=== PATIENT | female | born 1965 | race Caucasian/White ===

== ENCOUNTER 2017-01-02 09:51 | Emergency (ER) | payer MEDICARE, MEDICAID ==
[~2017-01-02 09:51] MED LIST: CITA-30; GABA-497 PO; LISI10TA6 PO; METF-370 PO; OMEP20CA74 PO
[2017-01-02] MEDS ORDERED: SODIUM CHLORIDE 0.9% 1,000 ML IV ONE (09:58)
[2017-01-02] MEDS ORDERED: LORazepam 2MG/ML-1ML VIAL IV ONE (10:00)
[2017-01-02] MEDS ORDERED: ONDANSETRON HCL 4 MG/2 ML VIAL ONE (10:16)
[2017-01-02 10:29] LABS: Basophils # (auto) 0 uL; Basophils % (auto) 0.3 % (0.0-2.0); CONDITION Y; Eosinophils # (auto) 0.2 uL; Eosinophils % (auto) 2.4 % (0.0-7.0); Hematocrit 39.8 % (36.0-46.0); Hemoglobin 13.6 g/dL (12.2-16.2); Lymphocytes # (auto) 2.7 uL; Lymphocytes % (auto) 27.4 % (10.0-50.0); Mean Corpuscular Hemoglobin 30.2 pg (28.0-32.0); Mean Corpuscular Hgb Conc. 34.1 g/dL (32.0-36.0); Mean Corpuscular Volume 88.8 fL (80.0-100.0); Mean Platelet Volume 9.1 fL (7.4-10.4); Monocytes # (auto) 0.5 uL; Monocytes % (auto) 5.2 % (0.0-12.0); Neutrophils # (auto) 6.3 uL; Neutrophils % (auto) 64.7 % (37.0-80.0); Platelet Count (auto) 241 10^3/uL (140-450); Red Cell Distribution Width 13.4 % (11.6-16.0); White Blood Cell 9.7 10^3/uL (4.4-10.8)
[2017-01-02] MEDS ORDERED: ONDANSETRON HCL 4 MG/2 ML VIAL IV ONE (10:30)
[2017-01-02 10:42] LABS: INR 0.95 (0.9-1.15); Partial Thromboplastin Time 25.4 sec (22.64-33.71); Prothrombin Time 10.3 sec (9.37-12.3)
[2017-01-02 10:56] LABS: Albumin 3.2 g/dL (3.4-5.0); Alkaline Phosphatase 105 U/L (45-117); Anion Gap 9 (5-15); Aspartate Aminotransferase 29 U/L (15-37); BUN/Creatinine Ratio 14.6; Bilirubin, Total 0.3 mg/dL (0.2-1.0); Blood Urea Nitrogen 13 mg/dL (7-18); Calcium 8.3 mg/dL (8.5-10.1); Carbon Dioxide 21 mmol/L (21-32); Chloride 106 mmol/L (98-107); GFR African American 86 mL/min; GFR Non-African American 71 mL/min; Glucose 249 mg/dL (74-106); Potassium 3.8 mmol/L (3.5-5.1); Sodium 136 mmol/L (136-145); Total Protein 7.3 g/dL (6.4-8.2)
[2017-01-02 12:27] LABS: Urine Bilirubin Negative (Negative); Urine Blood Negative /uL (Negative); Urine Color Yellow (Yellow); Urine Ketone Negative (Negative); Urine Mucus FEW (None Seen); Urine Nitrite Negative (Negative); Urine RBC 2 /hpf (0 - 4); Urine Squamous Epithelial Cell MOD /hpf (<5); Urine Urobilinogen Normal (Negative); Urine pH 5.5 (5.0-8.0)
[2017-01-02 12:29] LABS: Urine Glucose 4+ mg/dL (Normal)
[2017-01-02 13:14] VITALS: BP 125/76
== END 2017-01-02 13:21 | disposition home or self-care (01) ==
LOC: EDBD 09:51 → ER 09:51
DX: R07.89 Other chest pain (principal); N39.0 Urinary tract infection, site not specified; Z88.1 Allergy status to other antibiotic agents; Z88.6 Allergy status to analgesic agent; E78.5 Hyperlipidemia, unspecified; I10 Essential (primary) hypertension; E11.9 Type 2 diabetes mellitus without complications; Z87.11 Personal history of peptic ulcer disease; Z90.710 Acquired absence of both cervix and uterus; Z98.51 Tubal ligation status
CPT/HCPCS: 36415; 71010; 80053; 81001; 82962; 84484; 85025; 85610; 85730; 93005; 96361; 96374; 96375; 99285; J2060; J2405; J7030

== ENCOUNTER 2018-01-15 09:55 | Inpatient (IN) | payer MEDICARE, MEDICAID ==
[~2018-01-15] VITALS: Ht 162.6 cm; Wt 90.5 kg
[~2018-01-15 09:55] MED LIST changes: -GABA-497 PO; +GABA300C10 PO
[2018-01-15] MEDS ORDERED: NITROGLYCERIN 0.4 MG SL TAB SL ONE (11:00)
[2018-01-15] MEDS ORDERED: ASPirin 81 mg TAB PO ONE (11:00)
[2018-01-15 11:08] LABS: Urine Bacteria FEW /hpf (None Seen); Urine Blood Negative /uL (Negative); Urine Specific Gravity 1.033 (1.001-1.035); Urine WBC 38 /hpf (0 - 5)
[2018-01-15 11:20] LABS: Basophils # (auto) 0.1 uL; Basophils % (auto) 0.7 % (0.0-2.0); Eosinophils # (auto) 0.2 uL; Eosinophils % (auto) 1.7 % (0.0-7.0); Hemoglobin 13.8 g/dL (12.2-16.2); Lymphocytes # (auto) 3.5 uL; Lymphocytes % (auto) 36.2 % (10.0-50.0); Mean Corpuscular Hemoglobin 29.7 pg (28.0-32.0); Mean Corpuscular Hgb Conc. 33.6 g/dL (32.0-36.0); Mean Corpuscular Volume 88.4 fL (80.0-100.0); Monocytes # (auto) 0.7 uL; Monocytes % (auto) 6.8 % (0.0-12.0); Neutrophils # (auto) 5.3 uL; Neutrophils % (auto) 54.6 % (37.0-80.0); Nucleated Red Blood Cells % 0.1 %; Platelet Count (auto) 179 10^3/uL (140-450); Red Blood Cells 4.64 10^6/uL (4.0-5.20); White Blood Cell 9.7 10^3/uL (4.4-10.8)
[2018-01-15 11:39] LABS: Alanine Aminotransferase 92 U/L (13-56); Albumin 3.2 g/dL (3.4-5.0); Alkaline Phosphatase 140 U/L (45-117); Anion Gap 15 (5-15); Aspartate Aminotransferase 73 U/L (15-37); BUN/Creatinine Ratio 11.6; Bilirubin, Total 0.3 mg/dL (0.2-1.0); Blood Urea Nitrogen 14 mg/dL (7-18); Calcium 8.5 mg/dL (8.5-10.1); Carbon Dioxide 17 mmol/L (21-32); Chloride 100 mmol/L (98-107); GFR African American 60 mL/min; GFR Non-African American 49 mL/min; Potassium 4.1 mmol/L (3.5-5.1); Sodium 132 mmol/L (136-145)
[2018-01-15 11:41] LABS: Glucose 553 mg/dL (74-106)
[2018-01-15] MEDS ORDERED: SODIUM CHLORIDE 0.9% 1,000 ML IV ONE ×2 (11:44)
[2018-01-15] MEDS ORDERED: SODIUM CHLORIDE 0.9% 1,000 ML IV SCH ×2 (12:45→13:10)
[2018-01-15] MEDS ORDERED: NITROGLYCERIN 0.4 MG SL TAB SL PRN (12:45)
[2018-01-15] MEDS ORDERED: DEXTROSE (50%) 50ML SYRG IV PRN ×2 (12:45→13:30)
[2018-01-15] MEDS: SODIUM CHLORIDE 0.9% 1,000 ML IV SCH (13:30)
[2018-01-15] MEDS ORDERED: cefTRIAXone 1GM/10ml IVPUSH 10 ML IV ONE (13:30)
[2018-01-15] MEDS: GABAPENTIN 300 MG CAP PO SCH ×2 (15:12→21:22)
[2018-01-15 17:15] VITALS: BP 98/44
[2018-01-15] MEDS: ACETAMINOPHEN 325 MG TAB PO SCH (17:48)
[2018-01-15] MEDS ORDERED: InsuLIN REG 1unit/0.01ml Soln (100units/ml) SC SCH (18:00)
[2018-01-15] MEDS ORDERED: ACCU-CHEK COMFORT CURVE STRIP VI SCH ×2 (18:00)
[2018-01-15] MEDS: ACCU-CHEK COMFORT CURVE STRIP VI SCH (18:19)
[2018-01-15] MEDS: HYDROcodone-ACET 5/325MG TAB PO PRN (18:19)
[2018-01-15] MEDS: ONDANSETRON HCL 4 MG/2 ML VIAL IV SCH (18:19)
[2018-01-15] MEDS: InsuLIN REG 1unit/0.01ml Soln (100units/ml) SC SCH (18:29)
[2018-01-15] MEDS ORDERED: INSLANTI SC (18:57)
[2018-01-15] MEDS ORDERED: METF-929 PO (18:57)
[2018-01-15] MEDS ORDERED: SIMV10TA84 PO (18:57)
[2018-01-15 20:00] VITALS: BP 100/46
[2018-01-16] VITALS (10 sets, daily range): BP systolic 80–117; BP diastolic 55–70
[2018-01-16] MEDS: ACCU-CHEK COMFORT CURVE STRIP VI SCH ×4 (00:32→17:34)
[2018-01-16] MEDS: ONDANSETRON HCL 4 MG/2 ML VIAL IV SCH ×4 (00:42→17:43)
[2018-01-16] MEDS: InsuLIN REG 1unit/0.01ml Soln (100units/ml) SC SCH ×4 (00:42→17:43)
[2018-01-16] MEDS: HYDROcodone-ACET 5/325MG TAB PO PRN ×4 (00:42→21:46)
[2018-01-16] MEDS: GABAPENTIN 300 MG CAP PO SCH ×3 (05:32→21:44)
[2018-01-16] MEDS: SODIUM CHLORIDE 0.9% 1,000 ML IV SCH ×2 (05:32→17:43)
[2018-01-16] MEDS: ACETAMINOPHEN 325 MG TAB PO SCH ×4 (05:32→17:34)
[2018-01-16 06:20] LABS: Basophils # (auto) 0 uL; Basophils % (auto) 0.5 % (0.0-2.0); Eosinophils # (auto) 0.3 uL; Eosinophils % (auto) 2.7 % (0.0-7.0); Hemoglobin 14.2 g/dL (12.2-16.2); Lymphocytes # (auto) 4.7 uL; Lymphocytes % (auto) 50.9 % (10.0-50.0); Mean Corpuscular Hemoglobin 30.1 pg (28.0-32.0); Mean Corpuscular Hgb Conc. 34.6 g/dL (32.0-36.0); Monocytes # (auto) 0.6 uL; Monocytes % (auto) 6.6 % (0.0-12.0); Neutrophils # (auto) 3.6 uL; Neutrophils % (auto) 39.3 % (37.0-80.0); Nucleated Red Blood Cells % 0.1 %; Platelet Count (auto) 230 10^3/uL (140-450); Red Blood Cells 4.71 10^6/uL (4.0-5.20); Red Cell Distribution Width 13.2 % (11.8-14.3); White Blood Cell 9.2 10^3/uL (4.4-10.8)
[2018-01-16 06:43] LABS: Calcium 8.4 mg/dL (8.5-10.1); Chloride 107 mmol/L (98-107); Potassium 4.2 mmol/L (3.5-5.1); Sodium 140 mmol/L (136-145)
[2018-01-16 06:46] LABS: Alanine Aminotransferase 78 U/L (13-56); Albumin 2.9 g/dL (3.4-5.0); Anion Gap 9 (5-15); Aspartate Aminotransferase 48 U/L (15-37); Blood Urea Nitrogen 14 mg/dL (7-18); Carbon Dioxide 24 mmol/L (21-32); GFR African American 113 mL/min; GFR Non-African American 93 mL/min; Glucose 129 mg/dL (74-106)
[2018-01-16 06:51] LABS: Alkaline Phosphatase 107 U/L (45-117); Bilirubin, Total 0.5 mg/dL (0.2-1.0); Total Protein 7.4 g/dL (6.4-8.2)
[2018-01-16] MEDS ORDERED: LIDOCAINE 2% (LOCAL ANESTH.) PF 5ml SDV ONE (07:15)
[2018-01-16] MEDS ORDERED: IODIXANOL 320MG/ML 100ML BTL IV ONE (07:16)
[2018-01-16] MEDS ORDERED: VERAPAMIL 2.5MG/ML INJ 2ML VIAL IV ONE (09:02)
[2018-01-16] MEDS ORDERED: ANGIOMAX 250 MG VIAL IV ONE (09:02)
[2018-01-16] MEDS ORDERED: MIDAZOLAM HCL 1MG/1ML-2 ML VIAL ONE (09:03)
[2018-01-16] MEDS ORDERED: fentaNYL CITRATE 100 MCG/2 ML VL ONE (09:03)
[2018-01-16] MEDS ORDERED: SODIUM CHL 0.9% 0 ML ONE (09:03)
[2018-01-16] MEDS ORDERED: ONDANSETRON HCL 4 MG/2 ML VIAL ONE (09:26)
[2018-01-16] MEDS ORDERED: HEPARIN SODIUM (PORCINE) 5000 UNITS/ML 1ML VIAL ONE (09:37)
[2018-01-16] MEDS: LISINOPRIL 10 MG TAB PO SCH (10:00)
[2018-01-16] MEDS: ASPirin 81 mg TAB PO SCH (11:08)
[2018-01-16] MEDS: CITALOPRAM HYDROBR 20 MG TAB PO SCH (11:08)
[2018-01-16] MEDS: cefTRIAXone 1GM/10ml IVPUSH 10 ML IV SCH (11:08)
[2018-01-16 12:25] LABS: Partial Thromboplastin Time 38.7 sec (23.78-33.04); Prothrombin Time 10.7 sec (9.27-12.13)
[2018-01-17] MEDS: ONDANSETRON HCL 4 MG/2 ML VIAL IV SCH ×3 (00:32→11:08)
[2018-01-17] MEDS: InsuLIN REG 1unit/0.01ml Soln (100units/ml) SC SCH ×3 (00:34→11:21)
[2018-01-17 04:00] VITALS: BP 89/65
[2018-01-17 04:56] VITALS: BP 117/67
[2018-01-17] MEDS: ACETAMINOPHEN 325 MG TAB PO SCH ×3 (06:00→11:08)
[2018-01-17] MEDS: GABAPENTIN 300 MG CAP PO SCH (06:02)
[2018-01-17] MEDS: ACCU-CHEK COMFORT CURVE STRIP VI SCH ×3 (06:10→11:09)
[2018-01-17 07:12] LABS: BUN/Creatinine Ratio 18.5; Calcium 8.5 mg/dL (8.5-10.1); Potassium 3.8 mmol/L (3.5-5.1)
[2018-01-17 08:00] VITALS: BP 108/73
[2018-01-17] MEDS: SODIUM CHLORIDE 0.9% 1,000 ML IV SCH (08:05)
[2018-01-17 09:52] VITALS: BP 108/73
[2018-01-17] MEDS: cefTRIAXone 1GM/10ml IVPUSH 10 ML IV SCH (09:53)
[2018-01-17] MEDS: ASPirin 81 mg TAB PO SCH (09:54)
[2018-01-17] MEDS: CITALOPRAM HYDROBR 20 MG TAB PO SCH (09:54)
[2018-01-17] MEDS: LISINOPRIL 10 MG TAB PO SCH (09:54)
== END 2018-01-17 14:45 | disposition home or self-care (01) | DRG 287 ==
LOC: ER 09:59 → TELE 10:00 → TELE-WESTW 17:05
PROVIDERS: ADMIT Internal Medicine; ATTEND Internal Medicine
PROC: 4A023N7 Measurement of Cardiac Sampling and Pressure, Left Heart, Percutaneous Approach (ICD-10-PCS; principal; 2018-01-16)
PROC: B2111ZZ Fluoroscopy of Multiple Coronary Arteries using Low Osmolar Contrast (ICD-10-PCS; 2018-01-16)
PROC: B2151ZZ Fluoroscopy of Left Heart using Low Osmolar Contrast (ICD-10-PCS; 2018-01-16)
DX: R07.89 Other chest pain (principal); E87.1 Hypo-osmolality and hyponatremia; E44.0 Moderate protein-calorie malnutrition; N39.0 Urinary tract infection, site not specified; L03.115 Cellulitis of right lower limb; I20.0 Unstable angina; E11.65 Type 2 diabetes mellitus with hyperglycemia; I10 Essential (primary) hypertension; E78.5 Hyperlipidemia, unspecified; E11.40 Type 2 diabetes mellitus with diabetic neuropathy, unspecified; K21.9 Gastro-esophageal reflux disease without esophagitis; E66.01 Morbid (severe) obesity due to excess calories; A49.02 Methicillin resistant Staphylococcus aureus infection, unspecified site; F32.9 Major depressive disorder, single episode, unspecified; F41.9 Anxiety disorder, unspecified; Z87.11 Personal history of peptic ulcer disease; Z90.710 Acquired absence of both cervix and uterus; Z88.1 Allergy status to other antibiotic agents; Z79.4 Long term (current) use of insulin; Z88.5 Allergy status to narcotic agent; Z90.49 Acquired absence of other specified parts of digestive tract; Z68.34 Body mass index [BMI] 34.0-34.9, adult
CPT/HCPCS: 36415; 36600; 71046; 80048; 80053; 81001; 82805; 82962; 83525; 84484; 85025; 85610; 85730; 87081; 93005; 93458; 96374; 99152; A6257; J0696; J1815; J2001; J2250; J2405; Q9967